=== PATIENT | male | born 1935 | race African-American/Black ===

== ENCOUNTER 2021-04-26 23:44 | Inpatient (IN) | payer MEDICARE, OTHER ==
[~2021-04-26] VITALS: Ht 188 cm; Wt 115.0 kg
[~2021-04-26 23:44] MED LIST: AMIODARONE PO; AMLO5TAB4 PO; ASPI-1497 PO; DUTA0.5C2 PO; LINA5TAB PO; METO-539 PO; SILO8CAP2 PO
[2021-04-27] MEDS ORDERED: ASPIRIN 81MG TABLET PO ONE (02:00)
[2021-04-27 02:24] LABS: BASOPHILS % 1.3 % (0.0-2.0); EOSINOPHILS % 3.4 % (0.0-5.0); HEMATOCRIT. 39.4 % (42.0-52.0); HEMOGLOBIN. 12.6 g/dL (14.0-18.0); LYMPHOCYTES % 19.9 % (20.0-50.0); MEAN CORPUSCULAR HEMOGLOBIN 24.9 pg (28.0-32.0); MEAN CORPUSCULAR VOLUME 77.9 fL (80.0-94.0); MEAN PLATELET VOLUME 10.4 fl (7.4-10.4); MONOCYTES % 12.6 % (2.0-8.0); NEUTROPHILS % 62.8 % (40.0-76.0); PLATELET 143 x1000/uL (130-400); RED BLOOD CELL COUNT 5.06 mill/uL (4.7-6.1); RED CELL DISTRIBUTION WIDTH 17.5 % (11.6-14.6)
[2021-04-27 03:32] LABS: CHLORIDE 111 mEq/L (98-107)
[2021-04-27] MEDS ORDERED: IOHEXOL-350 100 ML BOTTLE ONE (06:58)
[2021-04-27] MEDS ORDERED: NITROGLYCERIN 0.4MG TABLET SL SL PRN (15:00)
[2021-04-27] MEDS ORDERED: CALCIUM CARBONATE 500MG TABLET CHEW PO PRN (15:00)
[2021-04-27] MEDS ORDERED: CLONIDINE 0.1MG TABLET PO PRN (15:30)
[2021-04-27] MEDS ORDERED: HYDROCODONE/ACETAMINOPHEN 5/325MG TABLET PO PRN (15:30)
[2021-04-27] MEDS ORDERED: LORAZEPAM 0.5MG TABLET PO PRN (15:30)
[2021-04-27] MEDS ORDERED: IPRATROPIUM/ALBUTEROL 0.5-3(2.5)MG/3ML NEB HHN PRN (15:30)
[2021-04-27] MEDS ORDERED: ACETAMINOPHEN 325MG TABLET PO PRN ×2 (15:30)
[2021-04-27] MEDS ORDERED: AMIODARONE HCL 200 MG TABLET PO SCH (15:30)
[2021-04-27] MEDS ORDERED: NALOXONE HCL 0.4MG/ML VIAL IV PRN (15:30)
[2021-04-27] MEDS ORDERED: DOCUSATE SODIUM 100MG CAPSULE PO PRN (15:30)
[2021-04-27] MEDS ORDERED: ONDANSETRON HCL 4MG/2ML INJ IV PRN (15:30)
[2021-04-27 16:40] LABS: VITAMIN B12 SERUM >2000 pg/mL pg/mL (211-911)
[2021-04-27 16:45] LABS: FOLIC ACID (FOLATE) SERUM > 20.00 ng/mL (>5.38)
[2021-04-27 16:54] LABS: FERRITIN 14 ng/mL (22-322)
[2021-04-27] MEDS ORDERED: ENOXAPARIN 30MG/0.3ML SYR SUBCUT SCH (17:00)
[2021-04-27] MEDS ORDERED: METOPROLOL TARTRATE 50MG TABLET PO SCH (17:00)
[2021-04-27 18:00] VITALS: BP 125/80
[2021-04-27 18:44] VITALS: BP 125/80
[2021-04-27] MEDS ORDERED: DEXTROSE 50% WATER 50ML SYRINGE IV PRN (20:00)
[2021-04-27 20:01] VITALS: BP 93/64
[2021-04-27] MEDS: METOPROLOL TARTRATE 50MG TABLET PO SCH (20:39)
[2021-04-27] MEDS: ENOXAPARIN 100MG/ML SYR SUBCUT SCH (20:40)
[2021-04-27] MEDS: BLOOD SUGAR DIAGNOSTIC STRIP TEST SCH (20:41)
[2021-04-27] MEDS: FAMOTIDINE 20MG TABLET PO SCH (20:41)
[2021-04-27] MEDS: DUTASTERIDE 0.5MG CAPSULE PO SCH (20:41)
[2021-04-27] MEDS: INSULIN LISPRO 100 UNITS/ML SUBCUT SCH (20:41)
[2021-04-27] MEDS: DIGOXIN 500MCG/2ML AMP IV PRN (20:41)
[2021-04-28] VITALS (7 sets, daily range): BP systolic 102–127; BP diastolic 61–90
[2021-04-28] MEDS: DIGOXIN 500MCG/2ML AMP IV PRN ×2 (00:37→03:56)
[2021-04-28] MEDS: ENOXAPARIN 100MG/ML SYR SUBCUT SCH (05:24)
[2021-04-28] MEDS: METOPROLOL TARTRATE 50MG TABLET PO SCH ×2 (05:37→21:18)
[2021-04-28 05:58] LABS: BASOPHILS % 1.1 % (0.0-2.0); EOSINOPHILS % 5.1 % (0.0-5.0); HEMATOCRIT. 40.5 % (42.0-52.0); HEMOGLOBIN. 12.9 g/dL (14.0-18.0); LYMPHOCYTES % 26.8 % (20.0-50.0); MEAN CORPUSCULAR HEMOGLOBIN 24.8 pg (28.0-32.0); MEAN CORPUSCULAR VOLUME 77.6 fL (80.0-94.0); MONOCYTES % 11.1 % (2.0-8.0); NEUTROPHILS % 55.9 % (40.0-76.0); PLATELET 128 x1000/uL (130-400); RED BLOOD CELL COUNT 5.21 mill/uL (4.7-6.1); RED CELL DISTRIBUTION WIDTH 17.2 % (11.6-14.6)
[2021-04-28 06:07] LABS: D-DIMER 2.32 mg/L FEU (<0.50); INR 1.2; PROTHROMBIN TIME 12.3 sec (9.6-11.0)
[2021-04-28 06:15] LABS: CHLORIDE 111 mEq/L (98-107)
[2021-04-28 06:25] LABS: LDL CHOLESTEROL 54 mg/dL (5-100)
[2021-04-28 06:27] LABS: HDL CHOLESTEROL 61 mg/dL (40-59)
[2021-04-28] MEDS: BLOOD SUGAR DIAGNOSTIC STRIP TEST SCH ×4 (07:02→20:27)
[2021-04-28] MEDS: INSULIN LISPRO 100 UNITS/ML SUBCUT SCH ×4 (07:19→21:00)
[2021-04-28] MEDS: FAMOTIDINE 20MG TABLET PO SCH ×2 (08:27→21:18)
[2021-04-28] MEDS: ASPIRIN 81MG EC TABLET PO SCH (08:27)
[2021-04-28] MEDS: DUTASTERIDE 0.5MG CAPSULE PO SCH (08:27)
[2021-04-28] MEDS: LINAGLIPTIN 5MG TABLET PO SCH (08:27)
[2021-04-28] MEDS ORDERED: AMLODIPINE 5MG TABLET PO SCH (09:00)
[2021-04-28] MEDS ORDERED: DILTIAZEM HCL 30MG TABLET PO SCH (17:30)
[2021-04-28] MEDS ORDERED: DIGOXIN 500MCG/2ML AMP IV SCH (19:30)
[2021-04-28] MEDS: MIDODRINE HCL 5MG TABLET PO SCH (19:37)
[2021-04-28] MEDS: DILTIAZEM HCL 30MG TABLET PO SCH (23:54)
[2021-04-29] MEDS: MIDODRINE HCL 5MG TABLET PO SCH ×3 (03:56→21:16)
[2021-04-29 04:00] VITALS: BP 121/73
[2021-04-29 04:22] LABS: BASOPHILS % 1.4 % (0.0-2.0); HEMATOCRIT. 38.4 % (42.0-52.0); HEMOGLOBIN. 12.4 g/dL (14.0-18.0); LYMPHOCYTES % 23.1 % (20.0-50.0); MEAN CORPUSCULAR VOLUME 77.3 fL (80.0-94.0); MEAN PLATELET VOLUME 10.5 fl (7.4-10.4); MONOCYTES % 12.3 % (2.0-8.0); NEUTROPHILS % 59.2 % (40.0-76.0); PLATELET 144 x1000/uL (130-400); RED BLOOD CELL COUNT 4.97 mill/uL (4.7-6.1); RED CELL DISTRIBUTION WIDTH 17.3 % (11.6-14.6)
[2021-04-29 04:34] LABS: CHLORIDE 114 mEq/L (98-107)
[2021-04-29 04:43] LABS: INR 1.1; PARTIAL THROMBOPLASTIN TIME 27.1 sec (23.4-31.0); PROTHROMBIN TIME 11.9 sec (9.6-11.0)
[2021-04-29 04:47] LABS: T4 FREE 1.26 ng/dL (0.76-1.46)
[2021-04-29] MEDS: DILTIAZEM HCL 30MG TABLET PO SCH ×3 (05:02→18:43)
[2021-04-29] MEDS: BLOOD SUGAR DIAGNOSTIC STRIP TEST SCH ×4 (05:59→20:50)
[2021-04-29] MEDS ORDERED: MIDODRINE HCL 2.5MG TABLET PO SCH (06:15)
[2021-04-29] MEDS: INSULIN LISPRO 100 UNITS/ML SUBCUT SCH ×3 (06:53→21:19)
[2021-04-29] MEDS ORDERED: LIDOCAINE HCL 1% 20ML VIAL (Pyxis) INJ ONE (07:12)
[2021-04-29] MEDS ORDERED: ASPIRIN/SOD BICARB/CITRIC ACID 324MG TAB EFF ONE (07:12)
[2021-04-29] MEDS ORDERED: IODIXANOL 320MG/ML 100 ML BOTTLE IV ONE ×2 (07:13→09:08)
[2021-04-29] MEDS ORDERED: MIDAZOLAM HCL 2 MG/2 ML VIAL ONE (07:52)
[2021-04-29] MEDS ORDERED: FENTANYL CITRATE/PF 50MCG/ML 2ML VIAL ONE (07:52)
[2021-04-29] MEDS ORDERED: DILTIAZEM HCL 5MG/ML 5ML VIAL IV ONE (08:11)
[2021-04-29] MEDS: FAMOTIDINE 20MG TABLET PO SCH ×2 (09:00→21:17)
[2021-04-29] MEDS: DUTASTERIDE 0.5MG CAPSULE PO SCH (09:00)
[2021-04-29] MEDS: ASPIRIN 81MG EC TABLET PO SCH (09:00)
[2021-04-29] MEDS: LINAGLIPTIN 5MG TABLET PO SCH (09:00)
[2021-04-29] MEDS: METOPROLOL TARTRATE 50MG TABLET PO SCH ×3 (09:00→21:35)
[2021-04-29] MEDS ORDERED: MORPHINE SULFATE 2 MG/ML CPJ (NOT FOR IM USE) IV PRN (09:45)
[2021-04-29] MEDS ORDERED: ATROPINE SULFATE 1MG/10ML SYR IV PRN (09:45)
[2021-04-29] MEDS ORDERED: ACETAMINOPHEN 325MG TABLET PO PRN (09:45)
[2021-04-29] MEDS ORDERED: SODIUM CHLORIDE 0.45% 1,000 ML IV ONE (10:00)
[2021-04-29] MEDS ORDERED: HEPARIN SODIUM 1,000 UNIT/1ML VIAL IV ONE (10:38)
[2021-04-29] MEDS ORDERED: NITROGLYCERIN 50MCG/ML 10ML VIAL (CATH LAB) IV ONE (10:38)
[2021-04-29] MEDS ORDERED: PHENYLEPHRINE 100MCG/ML 10ML VIAL (CATH LAB) IV ONE (10:38)
[2021-04-29] MEDS ORDERED: NICARDIPINE 100MCG/ML 10ML VIAL (CATH LAB) IV ONE (10:38)
[2021-04-29 14:00] VITALS: BP_SYST 120; BP_SYST 129; BP_DIAS 70
[2021-04-29] MEDS ORDERED: AMIODARONE HCL 200 MG TABLET PO NR (15:00)
[2021-04-29 16:00] VITALS: BP 110/67
[2021-04-29 18:00] VITALS: BP 116/73
[2021-04-29 20:30] VITALS: BP 103/77
[2021-04-29] MEDS ORDERED: ENOXAPARIN 100MG/ML SYR SUBCUT NR (21:00)
[2021-04-29 22:00] VITALS: BP 94/61
[2021-04-30] VITALS (11 sets, daily range): BP systolic 104–128; BP diastolic 58–84
[2021-04-30] MEDS: DILTIAZEM HCL 30MG TABLET PO SCH ×4 (05:50→17:00)
[2021-04-30] MEDS: MIDODRINE HCL 5MG TABLET PO SCH ×3 (05:50→21:32)
[2021-04-30 06:18] LABS: CHLORIDE 114 mEq/L (98-107)
[2021-04-30 06:53] LABS: BASOPHILS % 0.9 % (0.0-2.0); EOSINOPHILS % 3.7 % (0.0-5.0); HEMATOCRIT. 39.9 % (42.0-52.0); HEMOGLOBIN. 12.9 g/dL (14.0-18.0); LYMPHOCYTES % 24.4 % (20.0-50.0); MEAN CORPUSCULAR HEMOGLOBIN 25.3 pg (28.0-32.0); MEAN CORPUSCULAR VOLUME 78.2 fL (80.0-94.0); MEAN PLATELET VOLUME 10.9 fl (7.4-10.4); MONOCYTES % 10.3 % (2.0-8.0); NEUTROPHILS % 60.7 % (40.0-76.0); PLATELET 130 x1000/uL (130-400); RED BLOOD CELL COUNT 5.11 mill/uL (4.7-6.1); RED CELL DISTRIBUTION WIDTH 17.5 % (11.6-14.6)
[2021-04-30] MEDS: BLOOD SUGAR DIAGNOSTIC STRIP TEST SCH ×4 (07:10→21:26)
[2021-04-30] MEDS: INSULIN LISPRO 100 UNITS/ML SUBCUT SCH ×4 (07:20→21:33)
[2021-04-30] MEDS: DUTASTERIDE 0.5MG CAPSULE PO SCH (09:00)
[2021-04-30] MEDS: LINAGLIPTIN 5MG TABLET PO SCH (09:00)
[2021-04-30] MEDS ORDERED: ENOXAPARIN 100MG/ML SYR SUBCUT SCH (09:00)
[2021-04-30] MEDS: ASPIRIN 81MG EC TABLET PO SCH (09:00)
[2021-04-30] MEDS: METOPROLOL TARTRATE 50MG TABLET PO SCH ×2 (09:00→21:00)
[2021-04-30] MEDS: FAMOTIDINE 20MG TABLET PO SCH ×2 (09:00→21:32)
[2021-04-30] MEDS ORDERED: TETRACAINE/BENZOCAINE/BUTAMBEN 20 GM SPRAY MM ONE (11:58)
[2021-04-30] MEDS ORDERED: LIDOCAINE HCL 2% JELLY 5ML ONE (11:58)
[2021-04-30] MEDS ORDERED: MIDAZOLAM HCL 2 MG/2 ML VIAL ONE (12:19)
[2021-04-30] MEDS ORDERED: SUCCINYLCHOLINE CHLORIDE 200MG/10ML IV ONE (12:20)
[2021-04-30] MEDS ORDERED: PROPOFOL 200MG/20ML VIAL IV ONE (12:20)
[2021-04-30] MEDS ORDERED: MIDAZOLAM HCL 5 MG/5 ML VIAL ONE (13:10)
[2021-04-30] MEDS ORDERED: FENTANYL CITRATE/PF 50MCG/ML 5ML VIAL ONE (13:10)
[2021-04-30] MEDS ORDERED: DEXTROSE 50% WATER 50ML SYRINGE IV PRN (14:15)
[2021-04-30] MEDS ORDERED: GUAIFENESIN/CODEINE 100-10MG/5ML UDC PO PRN (16:45)
[2021-04-30] MEDS ORDERED: APIXABAN 5 MG TABLET PO NR (20:00)
[2021-04-30] MEDS: GUAIFENESIN/CODEINE 200-20MG/10ML UDC PO PRN (21:42)
[2021-05-01] VITALS (10 sets, daily range): BP systolic 127–139; BP diastolic 66–77
[2021-05-01] MEDS: MIDODRINE HCL 5MG TABLET PO SCH ×2 (06:34→14:26)
[2021-05-01] MEDS: GUAIFENESIN/CODEINE 200-20MG/10ML UDC PO PRN (06:34)
[2021-05-01 06:49] LABS: BASOPHILS % 0.7 % (0.0-2.0); EOSINOPHILS % 3.8 % (0.0-5.0); HEMATOCRIT. 35.9 % (42.0-52.0); HEMOGLOBIN. 11.6 g/dL (14.0-18.0); LYMPHOCYTES % 20.1 % (20.0-50.0); MEAN CORPUSCULAR HEMOGLOBIN 25.2 pg (28.0-32.0); MEAN CORPUSCULAR VOLUME 78.2 fL (80.0-94.0); MEAN PLATELET VOLUME 10.6 fl (7.4-10.4); MONOCYTES % 9.6 % (2.0-8.0); NEUTROPHILS % 65.8 % (40.0-76.0); PLATELET 103 x1000/uL (130-400); RED CELL DISTRIBUTION WIDTH 17.4 % (11.6-14.6)
[2021-05-01] MEDS: INSULIN LISPRO 100 UNITS/ML SUBCUT SCH ×2 (06:52→12:48)
[2021-05-01] MEDS: BLOOD SUGAR DIAGNOSTIC STRIP TEST SCH ×2 (06:52→11:58)
[2021-05-01 07:14] LABS: CHLORIDE 115 mEq/L (98-107)
[2021-05-01] MEDS: ASPIRIN 81MG EC TABLET PO SCH (08:22)
[2021-05-01] MEDS: LINAGLIPTIN 5MG TABLET PO SCH (08:22)
[2021-05-01] MEDS: FAMOTIDINE 20MG TABLET PO SCH (08:22)
[2021-05-01] MEDS: METOPROLOL TARTRATE 50MG TABLET PO SCH (08:24)
[2021-05-01] MEDS: DILTIAZEM HCL 30MG TABLET PO SCH (08:25)
[2021-05-01] MEDS: DUTASTERIDE 0.5MG CAPSULE PO SCH (08:28)
[2021-05-01] MEDS ORDERED: APIXABAN 5 MG TABLET PO SCH (09:00)
[2021-05-01] MEDS ORDERED: MIDO5TAB4 PO (09:35)
[2021-05-01] MEDS ORDERED: FERR325T6 MT (09:35)
[2021-05-01] MEDS ORDERED: APIX5TAB PO (09:35)
[2021-05-01] MEDS ORDERED: DOCU-150 MT (09:35)
[2021-05-01] MEDS ORDERED: METO-539 PO ×3 (09:55→09:57)
[2021-05-01] MEDS ORDERED: IRON SUCROSE COMPLEX 100 MG/5 ML ML IV NR (12:00)
== END 2021-05-01 15:35 | disposition home health service (06) | DRG 287 ==
LOC: ER 23:44 → MICUSO 04-27 05:10 → EDBEDREQ 04-27 05:12 → EDBEDREQTM 04-27 05:12 → 6WST 04-27 16:46 → 3WST 04-29 12:25
PROVIDERS: ADMIT Internal Medicine; ATTEND Internal Medicine
PROC: 4A023N7 Measurement of Cardiac Sampling and Pressure, Left Heart, Percutaneous Approach (ICD-10-PCS; principal; 2021-04-29)
PROC: B2181ZZ Fluoroscopy of Left Internal Mammary Bypass Graft using Low Osmolar Contrast (ICD-10-PCS; 2021-04-29)
PROC: B2111ZZ Fluoroscopy of Multiple Coronary Arteries using Low Osmolar Contrast (ICD-10-PCS; 2021-04-29)
PROC: B2131ZZ Fluoroscopy of Multiple Coronary Artery Bypass Grafts using Low Osmolar Contrast (ICD-10-PCS; 2021-04-29)
PROC: B41G1ZZ Fluoroscopy of Left Lower Extremity Arteries using Low Osmolar Contrast (ICD-10-PCS; 2021-04-29)
PROC: B24BZZ4 Ultrasonography of Heart with Aorta, Transesophageal (ICD-10-PCS; 2021-04-30)
PROC: 5A2204Z Restoration of Cardiac Rhythm, Single (ICD-10-PCS; 2021-04-30)
DX: I48.91 Unspecified atrial fibrillation (principal); J98.11 Atelectasis; I50.22 Chronic systolic (congestive) heart failure; I48.4 Atypical atrial flutter; I11.0 Hypertensive heart disease with heart failure; I25.10 Atherosclerotic heart disease of native coronary artery without angina pectoris; I45.10 Unspecified right bundle-branch block; K80.20 Calculus of gallbladder without cholecystitis without obstruction; N28.1 Cyst of kidney, acquired; D50.9 Iron deficiency anemia, unspecified; E66.9 Obesity, unspecified; E11.9 Type 2 diabetes mellitus without complications; D72.821 Monocytosis (symptomatic); I25.82 Chronic total occlusion of coronary artery; N40.0 Benign prostatic hyperplasia without lower urinary tract symptoms; R91.1 Solitary pulmonary nodule; I27.21 Secondary pulmonary arterial hypertension; I34.0 Nonrheumatic mitral (valve) insufficiency; Z79.899 Other long term (current) drug therapy; Z82.49 Family history of ischemic heart disease and other diseases of the circulatory system; Z87.891 Personal history of nicotine dependence; Z95.1 Presence of aortocoronary bypass graft; Z79.01 Long term (current) use of anticoagulants; Z79.82 Long term (current) use of aspirin; Z79.84 Long term (current) use of oral hypoglycemic drugs; Z98.49 Cataract extraction status, unspecified eye; Z20.822 Contact with and (suspected) exposure to COVID-19
CPT/HCPCS: 36415; 71045; 71275; 76700; 80048; 80053; 80061; 80076; 80162; 82378; 82607; 82728; 82746; 82962; 83036; 83540; 83550; 83735; 83880; 84439; 84443; 84481; 84484; 85025; 85347; 85379; 87426; 92960; 93005; 93306; 93312; 93458; 99291; C1726; C1760; C1769; C1887; C1893; J0330; J1160; J1644; J1650; J1815; J2250; J2370; J2704; J3010; J3490; J7040; Q9967